=== PATIENT | male | born 1960 | race Caucasian/White ===

== ENCOUNTER 2021-09-19 20:53 | Emergency (ER) | payer OTHER, SELFPAY ==
[2021-09-19 21:03] VITALS: BP 129/76; PULSE 96; RESP 16; TEMP 36.6; O2SAT 96; BMI 37.3
--- NOTE | 2021-09-19 21:18 | ED.CHESTPAIN ---
HPI - Chest Pain General Chief Complaint: Arrhythmia/Palpitations Stated Complaint: Elevated BP, abnormal heartbeat Time Seen by Provider: 09/19/21 21:18 History of Present Illness HPI narrative: Patient is a 61-year-old gentleman who presents with chest pain. The pain is gone now but occurred approximately 4 hours ago. He was felt in the substernal region with no radiation. No fevers no chills no night sweats no nausea no vomiting. He has had no similar symptoms previously and states he had a negative stress test within the year. He has otherwise been in good health. He states the pain was 6/10 in intensity. Related Data Home Medications Medication Instructions Recorded Confirmed acetaminophen 325 mg capsule 325 mg PO PRN 09/04/21 09/04/21 cholecalciferol (vitamin D3) 50 2,000 unit PO QDAY 09/04/21 09/19/21 mcg (2,000 unit) capsule gemfibrozil 600 mg tablet 600 mg PO QDAY 09/04/21 09/19/21 glipizide 10 mg tablet 10 mg PO BID 09/04/21 09/19/21 lansoprazole 15 mg capsule,delayed 15 mg PO DAILY 09/04/21 09/19/21 release metformin 1,000 mg tablet 1,000 mg PO BIDWMEAL 09/04/21 09/19/21 nitroglycerin 0.4 mg sublingual 0.4 mg sublingual PRN 09/04/21 09/04/21 tablet rosuvastatin 20 mg tablet 20 mg PO .Bedtime 09/04/21 09/19/21 Previous Rx's Medication Instructions Recorded amoxicillin 875 mg-potassium 1 tab PO Q12H #20 tabs 09/04/21 clavulanate 125 mg tablet Allergies Allergy/AdvReac Type Severity Reaction Status Date / Time No Known Allergies Allergy Verified 09/19/21 21:06 Review of Systems Status of ROS Reports: 10 or more systems reviewed and unremarkable except as noted in History and below [facility] Surgical History History of cholecystectomy (2019) Social History Smoking Status: Never smoker How often do you have a drink containing alcohol: never AUDIT-C Alcohol total score: 0 Non-prescribed substance use: denies use Exam Narrative Exam Narrative: EXAM GENERAL: Patient appears comfortable and well. EYES: No scleral icterus. LYMPH: No supraclavicular or cervical lymphadenopathy. SKIN: Visible skin seen during exam normal or with benign process only. EXT: No dependent lower extremity pedal edema. HEART: Regular rate and rhythm with no murmurs, rubs, or gallops. LUNGS: Clear to auscultation bilaterally with no crackles or wheezes. ABD: Soft, non tender, non distended. PSYCH: Good eye contact, speech is not pressured. Const Vital Signs, click to edit/add: Vital Signs - 24 hr 09/19/21 21:03 Temperature 97.8 F Pulse Rate [Left Pulse Oximeter] 96 Respiratory Rate 16 Blood Pressure [Right Upper Arm] 129/76 Pulse Oximetry 96 Oxygen Delivery Method Room Air Course Course Hospital Course: EKG negative upon my review for ischemia. Troponin CBC basic metabolic panel all normal Reevaluation(s) Reevaluation #1: Patient remains chest pain-free results reviewed with patient. Vital Signs Vital signs: Initial Vital Signs Temperature 97.8 F 09/19/21 21:03 Temperature Source Temporal Artery Scan 09/19/21 21:03 Pulse Rate 96 09/19/21 21:03 Pulse Rhythm 09/19/21 21:03 Respiratory Rate 16 09/19/21 21:03 Blood Pressure 129/76 09/19/21 21:03 Blood Pressure Mean 93 09/19/21 21:03 Blood Pressure Position Sitting 09/19/21 21:03 Pulse Oximetry 96 09/19/21 21:03 Oxygen Delivery Method 09/19/21 21:03 Vital Signs Temperature 97.8 F 09/19/21 21:03 Pulse Rate 96 09/19/21 21:03 Respiratory Rate 16 09/19/21 21:03 Blood Pressure 129/76 09/19/21 21:03 Pulse Oximetry 96 09/19/21 21:03 Oxygen Delivery Method 09/19/21 21:03 Temperature 97.8 F 09/19/21 21:03 Pulse Rate 96 09/19/21 21:03 Respiratory Rate 16 09/19/21 21:03 Blood Pressure 129/76 09/19/21 21:03 Pulse Oximetry 96 09/19/21 21:03 Oxygen Delivery Method 09/19/21 21:03 MDM - Chest Pain MDM Narrative Medical decision making narrative: Patient is currently asymptomatic. He is not hypoxic leading me to believe this not to be a pulmonary embolism. He shows no signs of aortic dissection. He has no respiratory symptoms as cardiac workup is unr Lab Data Lab results narrative: emarkable. Labs: Lab Results 09/19/21 09/19/21 Range/Units 21:33 21:33 WBC 8.60 (4.50-11.00) K/uL RBC 4.81 (4.30-5.90) m/uL Hgb 13.8 (13.5-17.5) gm/dL Hct 41.8 (37.0-53.0) % MCV 87 (80-100) fL MCH 29 (26-34) pg MCHC 33 (32-36) gm/dL RDW Coeff of Jitendra 12.4 (11.5-15.5) % Plt Count 243 (140-440) K/uL Neut % (Auto) 59.2 (42.0-72.0) % Lymph % (Auto) 25.8 (20-44) % Caroline % (Auto) 6.9 (0.0-11.0) % Eos % (Auto) 7.1 H (0.0-7.0) % Baso % (Auto) 0.7 (0.0-3.0) % Neut # (Auto) 5.09 (1.7-7.0) K/uL Lymph # (Auto) 2.22 (0.90-2.90) K/uL Caroline # (Auto) 0.60 (0.00-0.90) K/UL Eos # (Auto) 0.60 H (0.00-0.50) K/uL Baso # (Auto) 0.06 (0.00-0.30) K/uL Abs Immat Gran (auto) 0.03 (0.00-0.30) K/uL Sodium 139 (135-149) mmol/L Potassium 4.1 (3.6-5.1) mmol/L Chloride 104 (96-114) mmol/L Carbon Dioxide 24 (20-32) mmol/L BUN 17 (7-30) mg/dL Creatinine 0.9 (0.5-1.5) mg/dL Estimated Creat Clear 84.44 Estimated GFR 98 ml/min Glucose 134 H (60-115) mg/dL Calcium 9.3 (8.4-10.6) mg/dL Troponin I < 0.01 L (0.01-0.04) ng/mL Discharge Plan Discharge Clinical Impression: Chest pain Condition: Stable Instructions: Chest Pain (ED) Additional Instructions: keep outpatient cardiology appointment. Primary care follow-up as needed. Continue current medications. Activity Level: No Restrictions Discharge Diet: Regular Prescriptions: No Action cholecalciferol (vitamin D3) 50 mcg (2,000 unit) capsule 2,000 unit PO QDAY acetaminophen 325 mg capsule 325 mg PO PRN lansoprazole 15 mg capsule,delayed release(DR/EC) 15 mg PO DAILY Rx Instructions: TAKE 30 MINUTES PRIOR TO BREAKFST OR FIRST MAIN MEAL OF THEDAY nitroglycerin 0.4 mg tablet, sublingual 0.4 mg sublingual PRN metformin 1,000 mg tablet 1,000 mg PO BIDWMEAL rosuvastatin 20 mg tablet 20 mg PO .Bedtime glipizide 10 mg tablet 10 mg PO BID gemfibrozil 600 mg tablet 600 mg PO QDAY Label Comments: TAKE 1 TABLET BY MOUTH TWICE DAILY BEFORE MEAL(S) amoxicillin-pot clavulanate 875-125 mg tablet 1 tab PO Q12H Qty: 20 0RF Follow Up/Referrals: Sabina Duron MD [Primary Care Provider] - Stand Alone Forms: MyHealth Info Instructions
[2021-09-19 21:30] VITALS: BP 124/79; PULSE 92; RESP 25; O2SAT 94
[2021-09-19 21:45] LABS: Basophils Absolute Auto 0.06 K/uL (0.00-0.30); Basophils Percent Auto 0.7 % (0.0-3.0); Eosinophils Percent Auto 7.1 % (0.0-7.0); Hematocrit 41.8 % (37.0-53.0); Hemoglobin* 13.8 gm/dL (13.5-17.5); Immature Granulocytes Abs Auto 0.03 K/uL (0.00-0.30); Lymphocytes Absolute Auto 2.22 K/uL (0.90-2.90); Lymphocytes Percent Auto 25.8 % (20-44); Mean Corpuscular HGB Conc 33 gm/dL (32-36); Mean Corpuscular Hemoglobin 29 pg (26-34); Mean Corpuscular Volume 87 fL (80-100); Monocytes Percent Auto 6.9 % (0.0-11.0); Neutrophils Absolute Auto 5.09 K/uL (1.7-7.0); Neutrophils Percent Auto 59.2 % (42.0-72.0); Platelet Count* 243 K/uL (140-440); RDW Coefficient of Variation % 12.4 % (11.5-15.5); Red Blood Count 4.81 m/uL (4.30-5.90)
[2021-09-19 21:58] LABS: Slide Review Reflex No
[2021-09-19 22:00] VITALS: BP 117/83; PULSE 89; RESP 9; O2SAT 95
[2021-09-19 22:03] LABS: Chloride* 104 mmol/L (96-114); Potassium* 4.1 mmol/L (3.6-5.1); Sodium* 139 mmol/L (135-149)
[2021-09-19 22:05] LABS: Carbon Dioxide* 24 mmol/L (20-32); Creatinine* 0.9 mg/dL (0.5-1.5); Est. Creatinine Clearance* 84.44; Estimated Glomerular Filt Rate 98 ml/min
[2021-09-19 22:06] LABS: Blood Urea Nitrogen* 17 mg/dL (7-30); Calcium* 9.3 mg/dL (8.4-10.6); Glucose* 134 mg/dL (60-115)
[2021-09-19 22:29] LABS: Troponin I* < 0.01 ng/mL (0.01-0.04)
[2021-09-19 22:30] VITALS: BP 120/74; PULSE 85; RESP 19; O2SAT 94
[2021-09-19 22:55] VITALS: BP 120/74; PULSE 85; RESP 19
== END 2021-09-19 22:55 | disposition home or self-care (01) ==
PROVIDERS: Emergency Provider Internal Medicine; PCP Family Medicine
DX: R07.9 Chest pain, unspecified (principal)
CPT/HCPCS: 36415; 80048; 84484; 85025; 93005; 99283; 99284

== ENCOUNTER 2022-01-09 08:41 | Outpatient (CLI) | payer OTHER, SELFPAY ==
[2022-01-09 14:29] LABS: Chloride* 108 mmol/L (96-114)
[2022-01-09 14:30] LABS: Potassium* 4.6 mmol/L (3.6-5.1); Sodium* 143 mmol/L (135-149)
[2022-01-09 14:32] LABS: Alkaline Phosphatase* 91 U/L (40-150); Aspartate Amino Transferase* 25 U/L (12-35); Bilirubin Total* 0.7 mg/dL (0.1-1.5); Blood Urea Nitrogen* 17 mg/dL (7-30); Carbon Dioxide* 27 mmol/L (20-32); Cholesterol* 148 mg/dL (90-199); Creatinine* 0.9 mg/dL (0.5-1.5); Estimated Glomerular Filt Rate 98 ml/min; Total Protein* 7.5 g/dL (6.0-8.3)
[2022-01-09 14:33] LABS: Alanine Aminotransferase* 27 U/L (4-50); Calcium* 9.5 mg/dL (8.4-10.6); Glucose* 122 mg/dL (60-115); HDL Cholesterol* 31 mg/dL (>=40); LDL Cholesterol Calculated 71 mg/dL (<100); Triglycerides* 231 mg/dL (40-149)
[2022-01-09 15:24] LABS: Vitamin B12* 352 pg/mL (243-894)
[2022-01-15 13:05] LABS: Prostate Specific Antigen Free <0.1; Prostate Specific AntigenTotal <0.1
== END 2022-01-09 08:42 | disposition home or self-care (01) ==
PROVIDERS: PCP Family Medicine; Visit Provider Family Medicine
DX: G47.33 Obstructive sleep apnea (adult) (pediatric) (principal); E78.1 Pure hyperglyceridemia; E11.9 Type 2 diabetes mellitus without complications
CPT/HCPCS: 80053; 80061; 82607; 84153; 84154

== ENCOUNTER 2022-08-06 07:20 | Outpatient (CLI) | payer OTHER, SELFPAY ==
[2022-08-06 15:03] LABS: Cholesterol* 156 mg/dL (90-199); HDL Cholesterol* 27 mg/dL (>=40); LDL Cholesterol Calculated 34 mg/dL (<100)
[2022-08-06 15:10] LABS: Triglycerides* 473 mg/dL (40-149)
[2022-08-06 15:37] LABS: PSA Screen* < 0.06 ng/mL (0.10-4.00)
== END 2022-08-06 07:21 | disposition home or self-care (01) ==
PROVIDERS: PCP Family Medicine; Visit Provider Family Medicine
DX: Z12.5 Encounter for screening for malignant neoplasm of prostate (principal); Z13.6 Encounter for screening for cardiovascular disorders
CPT/HCPCS: 80053; 80061; 82043; 82570; 82607; 84153; 84156; 86803